=== PATIENT | male | born 1955 | race American Indian/Alaskan Native ===

== ENCOUNTER 2018-04-26 17:15 | Emergency (ER) | payer MEDICAID ==
[2018-04-26] MEDS ORDERED: KEPPRA 1,000 MG/NS 0.75% 100ML 1,000 MG/100 ML BAG IV ONE (17:41)
--- NOTE | 2018-04-26 18:17 | Emergency Department Report ---
ED Seizure HPI - General Chief Complaint: Seizure Stated Complaint: ANGELES Time Seen by Provider: 04/26/18 17:33 Source: EMS Mode of arrival: Stretcher Limitations: Other - History of Present Illness Initial Comments: Patient is currently altered. History obtained from Girlfriend Nubia Dill Mr. Mckinley is a 62 yo male with hx of prostate cancer, HTN, alcoholism who presents with several seizures today. Girlfriend witnessed two generalized seizures at [facility] on [facility]. EMS witnessed seizure activity while treating patient. Patient was given 5 mg versed. Patient then required oxygen supplementation 89% room oxygen saturation. Patient is now nonverbal, apparent post ictal state. Today he was in his normal state of health. He did drink beer and liquor today. Girlfriend explains that Mr. Mckinley begins to drink beer daily the moment he wakes up. He has had prostate cancer for several years. "His numbers are good." Ms. Dill has known Mr. Mckinley for 3 years. Mr. Mckinley's seizures began 5 months ago. Evaluated at ER [facility] when the seizures began. He was not discharged with seizure medication. The seizures were attributed to alcohol use. He was also diagnosed with UTI and liver disease. He has not worked for 30 years. He receives medical disability for trauma, gushot wound to leg during service. Mr. Mckinley did have seizures at a young age. MD Complaint: seizure -: Sudden, minutes(s) (several) Description of Episode: loss of consciousness, tonic-clonic movement Witnessed:: Yes Trauma: No Seizure History: other (seizure began recently 5 months ago) Place: other ([facility]) Possible Precipitating Event: other (alcohol ingesiton) Associated Symptoms: other (unable to obtain from girlfriend) Treatments Prior to Arrival: benzodiazepines, other (oxygen) - Related Data Previous Rx's Medication Instructions Recorded Last Taken Type levETIRAcetam [Keppra] 500 mg PO BID 30 Days #60 tablet 04/26/18 Unknown Rx Allergies Allergy/AdvReac Type Severity Reaction Status Date / Time No Known Allergies Allergy Verified 04/26/18 17:40 ED Review of Systems ROS: Stated complaint: ANGELES Other details as noted in HPI Comment: Unobtainable due to pts medical conditions ED Past Medical Hx - Past Medical History Previous Medical History?: Yes Hx Seizures: Yes Additional medical history: prostate cancer - Surgical History Past Surgical History?: No Additional Surgical History: unknown - Social History Smoking Status: Never Smoker Substance Use Type: None - Medications Home Medications: Home Medications Medication Instructions Recorded Confirmed Last Taken Type levETIRAcetam [Keppra] 500 mg PO BID 30 Days #60 tablet 04/26/18 Unknown Rx ED Physical Exam - General Limitations: Other General appearance: lethargic, other (responds to sternal rub) - Head Head exam: Present: atraumatic, normocephalic - Eye Eye exam: Present: PERRL. Absent: scleral icterus, conjunctival injection Pupils: Present: miosis - ENT ENT exam: Present: normal orophraynx - Neck Neck exam: Present: normal inspection, full ROM. Absent: tenderness, meningismus - Respiratory Respiratory exam: Present: normal lung sounds bilaterally. Absent: wheezes, rales, rhonchi - Cardiovascular Cardiovascular Exam: Present: regular rate, normal rhythm, normal heart sounds. Absent: systolic murmur, diastolic murmur - GI/Abdominal GI/Abdominal exam: Present: soft. Absent: distended, tenderness, guarding, rebound - Neurological Exam Neurological exam: Present: altered - Psychiatric Psychiatric exam: Present: other (drowsy) - Skin Skin exam: Present: warm, dry, intact, normal color ED Course Vital Signs 04/26/18 04/26/18 04/26/18 17:22 18:06 18:16 Temperature 97.0 F L Pulse Rate 89 75 83 Respiratory 18 14 17 Rate Blood Pressure Blood Pressure 119/90 [Left] O2 Sat by Pulse 94 100 100 Oximetry 04/26/18 04/26/18 04/26/18 18:30 18:46 19:00 Temperature Pulse Rate 79 83 71 Respiratory 13 17 15 Rate Blood Pressure 121/89 158/97 134/97 Blood Pressure [Left] O2 Sat by Pulse 100 100 100 Oximetry 04/26/18 04/26/18 04/26/18 19:15 19:30 19:45 Temperature Pulse Rate 68 69 71 Respiratory 14 15 15 Rate Blood Pressure 119/84 118/79 115/84 Blood Pressure [Left] O2 Sat by Pulse 99 100 99 Oximetry 04/26/18 04/26/18 04/26/18 20:01 20:15 20:30 Temperature Pulse Rate 95 H 74 77 Respiratory 20 15 16 Rate Blood Pressure 115/84 115/84 135/85 Blood Pressure [Left] O2 Sat by Pulse 99 95 96 Oximetry 04/26/18 20:45 Temperature Pulse Rate 76 Respiratory 15 Rate Blood Pressure 135/85 Blood Pressure [Left] O2 Sat by Pulse 96 Oximetry ED Medical Decision Making - Lab Data Result diagrams: 04/26/18 17:43 04/26/18 17:43 - EKG Data 04/26/18 18:19 EKG obtained 1806 Rate 80 beats a minute normal sinus rhythm left axis deviation no ST elevation prolonged QT interval no signs of ischemia - Medical Decision Making Mr. Mckinley presents with alcohol related seizures. Significant other noticed that the seizures occur when he drinks more alcohol then usual. Upon arrival, after 2 seizures, blood alcohol level 0.23. Due to sedative effect of versed and post ictal state, patient was lethargic for several hours while maintaining airway. Eventually, he no longer needed oxygen supplementation. I spoke with neurologist Dr. Pompa who did recommended antiepileptic medication in the possibility that Mr. Mckinley does indeed have epilepsy. He will need outpatient MRI and EEG. Due to insurance limitations, I strongly encouraged evaluation by CT physician for neurology referral. I did refer Mr. Mckinley to several neurologists in the area. Once awake, Mr. Mckinley was able to inform me that he has had seizures since the age of 13. He does not take antiepileptics because he does not like how they make him feel. He had previously taken Dilantin. I strongly encouraged compliance with antiepileptic medication Keppra. I explained that this medication had minimal side effects. He will follow up as instructed. Critical Care Time: Yes Critical care attestation.: If time is entered above; I have spent that time in minutes in the direct care of this critically ill patient, excluding procedure time. 40 minutes of critical care time excluding procedures were used in the care of the patient. Patient required multiple assessments and interventions. I obtained hx from girlfriend and EMS. I provided immediately upon patient's arrival. ED Disposition Clinical Impression: Alcohol related seizure, Epilepsy Disposition: [id number] TO HOME OR SELFCARE Is pt being admited?: No Does the pt Need Aspirin: No Condition: Stable Additional Instructions: You will continue to have seizures until you stop drinking alcohol. Please consider a detox or rehab program. Please see a neurologist as soon as possible. Prescriptions: levETIRAcetam [Keppra] 500 mg PO BID 30 Days #60 tablet Referrals: LEILA LEONARDO MD [Referring] - 3-5 Days RENEE PHILLIP MD [Staff Physician] - 3-5 Days JORDON SKELTON MD [Staff Physician] - 3-5 Days MAG GORDILLO MD [Staff Physician] - 3-5 Days
[2018-04-26 18:22] LABS: Hematocrit 44.4 % (35.5-45.6); Mean Corpuscular HGB Conc 34 % (32-34); Mean Corpuscular Volume 94 fl (84-94); Platelet Count 232 K/mm3 (140-440); Red Blood Count 4.71 M/mm3 (3.65-5.03); Red Cell Distribution Width 14.1 % (13.2-15.2)
[2018-04-26 18:43] LABS: Alanine Aminotransferase 48 units/L (7-56); Albumin 4.2 g/dL (3.9-5); BUN/Creatinine Ratio 9; Blood Urea Nitrogen 7 mg/dL (9-20); Calcium 8.4 mg/dL (8.4-10.2); Hemolysis Index 8
--- NOTE | 2018-04-26 18:48 | XRay Report ---
PROCEDURE: XR CHEST 1V AP TECHNIQUE: Frontal portable view of the chest HISTORY: hx of infection seizure COMPARISONS: None FINDINGS: There is bilateral hypoinflation. There appear to be patchy areas of pulmonary consolidation in both lung bases, left greater than righ t. Atelectasis versus infiltrate. The cardiac silhouette appears to be enlarged. The thoracic aorta is tortuous. The bony structures are unremarkable. IMPRESSION: 1. Appearance of patchy areas of pulmonary consolidation in both lung bases, left greater than right. Comparison with previous imaging studies would be helpful. If no prior studies are available for erika arroyo, CT chest may be helpful for further evaluation. This document is electronically signed by Ysabel Faria MD., April 26 2018 06:45:24 PM ET
[2018-04-26 19:42] LABS: Eosinophils % (Manual) 0 % (0.0-4.3); RBC Morphology Normal; Total Cells Counted 100
[2018-04-26 20:35] LABS: Bilirubin,Urine NEG (Negative); Blood,Urine NEG (Negative); Color,Urine Straw (Yellow); Protein,Urine <15 mg/dL mg/dL (Negative); RBC,Urine < 1.0 /HPF (0.0-6.0); Urobilinogen,Urine < 2.0 mg/dL (<2.0); WBC,Urine < 1.0 /HPF (0.0-6.0)
[2018-04-26 23:06] VITALS: BP 128/85
== END 2018-04-26 23:59 | disposition home or self-care (01) ==
LOC: ED 17:15
DX: G40.509 Epileptic seizures related to external causes, not intractable, without status epilepticus (principal); Z85.46 Personal history of malignant neoplasm of prostate
CPT/HCPCS: 36415; 71045; 80053; 80164; 80185; 81001; 82140; 85007; 85025; 87040; 93005; 93010; 96365; 96366; 99291; G0480; J1953; 80320

== ENCOUNTER 2019-03-02 18:34 | Emergency (ER) | payer MEDICAID ==
[2019-03-03 01:13] VITALS: BP 116/82
== END 2019-03-02 19:00 | disposition left against medical advice (07) ==
LOC: ED 18:34
DX: R07.89 Other chest pain (principal); Z53.21 Procedure and treatment not carried out due to patient leaving prior to being seen by health care provider